=== PATIENT | male | born 1945 | race Caucasian/White ===

== ENCOUNTER 2018-03-25 11:29 | Day surgery (SDC) | payer OTHER ==
[~2018-03-25] VITALS: Ht 180.3 cm; Wt 75.1 kg
[~2018-03-25 11:29] MED LIST: ACET500 PO; ASPI81CH PO; CARV6.25 PO; CHOL10002 PO; EPLE25 PO; HYDR1TAB94; HYDR1TAB94 PO; KRILL OIL500 MG PO; LISI5 PO; MELO7.5 PO; Metamucil Smooth1 EA PO; Multi-Day Vita1 EACH; NATURAL LUTEIN20 MG PO; ZOLP10 PO; [UNRECOGNIZED DRUG - OTHER]
== END 2018-03-25 13:42 | disposition home or self-care (01) ==
LOC: ORSCSDS 11:29
PROVIDERS: Internal Medicine Gastroenterology
PROC: 0DBE8ZX Excision of Large Intestine, Via Natural or Artificial Opening Endoscopic, Diagnostic (ICD-10-PCS; principal; 2018-03-25 13:00)
PROC: 0DBH8ZX Excision of Cecum, Via Natural or Artificial Opening Endoscopic, Diagnostic (ICD-10-PCS; principal; 2018-03-25 13:00)
DX: Z12.11 Encounter for screening for malignant neoplasm of colon (principal); K57.30 Diverticulosis of large intestine without perforation or abscess without bleeding; Z87.891 Personal history of nicotine dependence; Z79.82 Long term (current) use of aspirin; Z79.899 Other long term (current) drug therapy
CPT/HCPCS: 88305; 88313; J7120

== ENCOUNTER → 2020-01-23 | Outpatient (CLI) | payer OTHER ==
[~2020-01-23] MED LIST changes: -ASPI81CH PO; +Aspirin EC81 MG PO; -CHOL10002 PO; +DAILY-VITE1 EACH PO; +METAMUCIL POWD575 GM PO; -Metamucil Smooth1 EA PO; -Multi-Day Vita1 EACH; +OMEP20ER PO; +VITAMIN D31000 UNI1 PO
== END | disposition home or self-care (01) ==
LOC: LAB 11:55
DX: L97.509 Non-pressure chronic ulcer of other part of unspecified foot with unspecified severity (principal)
CPT/HCPCS: 87015; 87116; 87206

== ENCOUNTER 2020-02-16 14:08 | Observation (INO) | payer OTHER ==
[~2020-02-16] VITALS: Ht 180.3 cm; Wt 72.6 kg
[~2020-02-16 14:08] MED LIST changes: -OMEP20ER PO
[2020-02-16 15:15] LABS: BASOPHILS ABSOLUTE AUTO 0.06 K/mm3 (0.00-0.23); BASOPHILS PERCENT AUTO 1 % (0-2); EOSINOPHILS ABSOLUTE AUTO 0.41 K/mm3 (0.00-0.68); EOSINOPHILS PERCENT AUTO 5 % (0-6); Hematocrit 43.6 % (37.0-53.0); Hemoglobin 14.6 g/dL (13.5-17.5); IMMATURE GRAN ABSOLUTE AUTO 0.02 K/mm3 (0.00-0.10); IMMATURE GRAN PERCENT AUTO 0 % (0-1); LYMPHOCYTES ABSOLUTE AUTO 3.33 K/mm3 (0.84-5.20); LYMPHOCYTES PERCENT AUTO 41 % (21-46); MONOCYTES ABSOLUTE AUTO 0.85 K/mm3 (0.16-1.47); MONOCYTES PERCENT AUTO 10 % (4-13); Mean Corpuscular HGB 31.3 pg (26.0-34.0); Mean Corpuscular HGB Conc 33.5 g/dL (31.5-36.5); Mean Corpuscular Volume 94 fL (80-100); Mean Platelet Volume 8.9 fL (9.1-12.4); NEUTROPHILS ABSOLUTE AUTO 3.55 K/mm3 (1.96-9.15); NEUTROPHILS PERCENT AUTO 43 % (41-73); Platelet Count 286 K/mm3 (150-400); RDW Coefficient Variation 12.5 % (11.7-14.2); RDW Standard Deviation 43.4 fL (35.1-46.3); Red Blood Cell Count 4.66 M/mm3 (4.30-5.90); White Blood Cell Count 8.22 K/mm3 (4.00-11.30)
[2020-02-16 15:28] LABS: Alanine Aminotransfer (ALT/SGP 27 U/L (12-78); Albumin, Blood 3.9 g/dL (3.4-5.0); Alk Phos 84 U/L (50-136); Anion Gap 6 mmol/L (6-16); Aspartate Aminotrans (AST/SGOT 9 U/L (12-37); Bilirubin, Total 0.4 mg/dL (0.1-1.0); Blood Urea Nitrogen 13 mg/dL (8-24); Bun/Creatinine Ratio 18.3 (12.0-20.0); CO2, Blood 29 mmol/L (21-32); Calcium, Blood 9.8 mg/dL (8.5-10.1); Chloride, Blood 100 mmol/L (98-108); Creatinine, Blood 0.71 mg/dL (0.60-1.20); Globulin, Blood 4.1 g/dL (2.2-4.0); Glomerular Filtration Rate >60 (60-); Glucose, Blood 125 mg/dL (70-99); Potassium, Blood 3.9 mmol/L (3.5-5.5); Sodium, Blood 135 mmol/L (136-145)
[2020-02-16] MEDS ORDERED: OMEP20ER PO (16:26)
[2020-02-16 17:26] LABS: Influenza A, PCR Negative (NEGATIVE); Influenza B, PCR Negative (NEGATIVE); Resp Syncytial Virus, PCR Negative (NEGATIVE); SARS-Cov-2 (COVID-19) PCR, MMC Negative (NEGATIVE)
--- NOTE | 2020-02-16 19:06 | NUR ---
PT RECENTLY TO ROOM 208 FROM ER VIA W/C. PT TO BED BY SELF. PRESENT. REPORT GIVEN TO GINNA BECERRA.
--- NOTE | 2020-02-16 20:08 | NUR ---
TOOK AN ORAL TEMP. OF 96.9 AND GRABBED HIM HALF A TURKEY SANDWICH WITH CHEDDAR CHEESE. PATIENT EATING AND RESTING IN BED WITH CALL LIGHT IN REACH.
--- NOTE | 2020-02-17 05:23 | NUR ---
SHIFT SUMMARY NEW ADMIT YESTARDAY EVENING. AAOX4. DISCOMFORT TO RIGHT FOOT AT TOLERABLE LEVEL T/O NIGHT, DENIES PAIN MEDICATION/NAUSEA. WOUND DOCUMENTATION COMPLETED IN CHART + WRAPPED WITH NON-ADHERENT GAUZE + KERLEX. PT REPORTS N/T AT BASELINE, UNABLE TO MOVES TOES WELL RLE WHICH PT REPORTS IS NORMAL FOR THE LAST 2-3 MONTHS. IV ABX PER ORDERS. PODIATRY CONSULT CALLED [facility] EVENING AND REPORTED THAT NO PODIATRY COVERAGE WILL BE AVAILABLE TILL 02/19 AND TO CALL ON SUNDAY 02/18 IF PT IS NEEDED TO BE SEEN THEN, DAY SHIFT HOSPITALIST IS TO BE NOTIFIED THIS AM. PT ORIENTED TO ROOM + CALL LIGHT USE. PT CURRENTLY RESTING IN BED WITH CALL LIGHT IN REACH.
--- NOTE | 2020-02-17 07:25 | NUR ---
DR HELMS REPORTS TO HOLD TRAY THIS AM AND TO CONTACT DR PEREZ, HIS PHYSICAL EDUCATION TEACHER TO COME SEE PT. OFFICE CALLED [facility] AT 08:30 THIS AM. WILL DISCUSS WITH PT TO KEEP HIM UP TO DATE AND CHARGE NURSE.
--- NOTE | 2020-02-17 08:41 | NUR ---
DR PEREZ (PODIATRY) OFFICE REPORTED WOULD GIVE MESSAGE TO DR PEREZ TO COME SEE PT, REPORTED THAT HE HAD PT'S UNTIL AROUND 11 AM SO FAR THIS AM. DR HELMS HERE TO SEE PT, UPDATED ON WHAT OFFICE JUST STATED. DR HELMS REPORTS PT MAY EAT THIS AM.
--- NOTE | 2020-02-17 11:05 | NUR ---
DR PEREZ'S OFFICE CALLED REGARDING MD REQUEST FOR DR PEREZ TO COME TO HOSPITAL TO SEE PATIENT TODAY. PER OFFICE DR PEREZ WILL NOT BE COMING INTO HOSPITAL TO SEE PATIENT. THIS RN TOOK MESSAGE AND ALSO REPORTED TO OFFICE STAFF THAT THERE THE HOSPITALIST IS LIKELY DISCHARGING HOME.
--- NOTE | 2020-02-17 11:38 | NUR ---
CARMEN HAMMER) FROM [facility] HERE TO SEE PT, NO NEW ORDERS AT THIS TIME, OK TO D/C FROM THEY'RE PERSPECTIVE.
--- NOTE | 2020-02-17 11:48 | NUR ---
PT REPORTS DOES NOT WANT ABX.
--- NOTE | 2020-02-17 12:24 | NUR ---
DISCHARGE: PT EATING AND DRINKING, VOIDING, PASSING GAS, RECENT BM PER PT. PT/FAMILY REPORTS UNDERSTANDING OF DISCHARGE INSTRUCTIONS. IV OUT WNL. REPORTS HAVING DRESSING SUPPLIES AND ABLE TO CHANGE DRESSING. PT OUT BY W/C. SENT WITH PAPERWORK AND BELONGINGS.
== END 2020-02-17 12:26 | disposition home or self-care (01) ==
LOC: ER 14:08 → SURS 18:37
PROVIDERS: Physician Assistant; ADMIT Internal Medicine
DX: L97.511 Non-pressure chronic ulcer of other part of right foot limited to breakdown of skin (principal); I50.32 Chronic diastolic (congestive) heart failure; G60.9 Hereditary and idiopathic neuropathy, unspecified; M21.371 Foot drop, right foot; C61 Malignant neoplasm of prostate; Z79.82 Long term (current) use of aspirin; Z79.899 Other long term (current) drug therapy; Z96.643 Presence of artificial hip joint, bilateral; Z87.891 Personal history of nicotine dependence; Z95.810 Presence of automatic (implantable) cardiac defibrillator; Z20.828 Contact with and (suspected) exposure to other viral communicable diseases; Z23 Encounter for immunization
CPT/HCPCS: 0241U; 36415; 73630; 73700; 80053; 85025; 85651; 86140; 93922; 96365; 96366; 99284-25; G0378; J3370; J7040; J7050

== ENCOUNTER → 2020-02-16 | Outpatient (CLI) | payer OTHER | END | disposition home or self-care (01) | LOC: LAB 10:00 | DX: L97.519 Non-pressure chronic ulcer of other part of right foot with unspecified severity (principal) | CPT/HCPCS: 87070; 87075; 87077; 87186; 87205 ==

== ENCOUNTER 2020-03-16 00:27 | Day surgery (SDC) | payer OTHER ==
[~2020-03-16 00:27] MED LIST changes: +OMEP20ER PO
== END 2020-03-16 22:50 | disposition home or self-care (01) ==
LOC: WOUND 00:27
DX: E11.621 Type 2 diabetes mellitus with foot ulcer (principal); L97.516 Non-pressure chronic ulcer of other part of right foot with bone involvement without evidence of necrosis; E11.21 Type 2 diabetes mellitus with diabetic nephropathy; M21.371 Foot drop, right foot; I50.9 Heart failure, unspecified; M79.89 Other specified soft tissue disorders; R60.0 Localized edema; I70.213 Atherosclerosis of native arteries of extremities with intermittent claudication, bilateral legs; Z95.810 Presence of automatic (implantable) cardiac defibrillator; Z85.46 Personal history of malignant neoplasm of prostate; Z87.891 Personal history of nicotine dependence
CPT/HCPCS: A9270; G0463

== ENCOUNTER 2020-03-23 00:20 | Day surgery (SDC) | payer OTHER | END 2020-03-23 23:17 | disposition home or self-care (01) | LOC: WOUND 00:20 | DX: L97.516 Non-pressure chronic ulcer of other part of right foot with bone involvement without evidence of necrosis (principal); L02.611 Cutaneous abscess of right foot; G62.9 Polyneuropathy, unspecified; M79.671 Pain in right foot; Z79.82 Long term (current) use of aspirin; Z79.899 Other long term (current) drug therapy; Z20.822 Contact with and (suspected) exposure to COVID-19 | CPT/HCPCS: A9270 ==

== ENCOUNTER 2020-03-30 00:21 | Day surgery (SDC) | payer OTHER | END 2020-03-30 22:53 | disposition home or self-care (01) | LOC: WOUND 00:21 | DX: G62.9 Polyneuropathy, unspecified (principal); L97.516 Non-pressure chronic ulcer of other part of right foot with bone involvement without evidence of necrosis; M79.671 Pain in right foot | CPT/HCPCS: A9270; G0463 ==

== ENCOUNTER 2020-04-06 00:16 | Day surgery (SDC) | payer OTHER | END 2020-04-06 23:45 | LOC: WOUND 00:16 | DX: L97.516 Non-pressure chronic ulcer of other part of right foot with bone involvement without evidence of necrosis (principal); G62.9 Polyneuropathy, unspecified; I50.9 Heart failure, unspecified; Z95.810 Presence of automatic (implantable) cardiac defibrillator | CPT/HCPCS: A9270 ==

== ENCOUNTER 2020-04-13 01:07 | Day surgery (SDC) | payer OTHER | END 2020-04-13 22:55 | disposition home or self-care (01) | LOC: WOUND 01:07 | DX: L97.516 Non-pressure chronic ulcer of other part of right foot with bone involvement without evidence of necrosis (principal); G62.9 Polyneuropathy, unspecified; M79.671 Pain in right foot | CPT/HCPCS: A9270 ==

== ENCOUNTER 2020-04-16 02:19 | Day surgery (SDC) | payer OTHER | END 2020-04-16 22:44 | disposition home or self-care (01) | LOC: WOUND 02:19 | DX: L97.516 Non-pressure chronic ulcer of other part of right foot with bone involvement without evidence of necrosis (principal); G62.9 Polyneuropathy, unspecified; M79.671 Pain in right foot ==

== ENCOUNTER 2020-04-21 00:45 | Day surgery (SDC) | payer OTHER | END 2020-04-21 23:02 | disposition home or self-care (01) | LOC: WOUND 00:45 | DX: L97.516 Non-pressure chronic ulcer of other part of right foot with bone involvement without evidence of necrosis (principal); G62.9 Polyneuropathy, unspecified; M79.671 Pain in right foot | CPT/HCPCS: A9270 ==

== ENCOUNTER 2020-04-30 01:43 | Day surgery (SDC) | payer OTHER | END 2020-04-30 22:44 | disposition home or self-care (01) | LOC: WOUND 01:43 | DX: L97.515 Non-pressure chronic ulcer of other part of right foot with muscle involvement without evidence of necrosis (principal); G62.9 Polyneuropathy, unspecified; I50.9 Heart failure, unspecified; Z95.810 Presence of automatic (implantable) cardiac defibrillator | CPT/HCPCS: A9270 ==

== ENCOUNTER 2020-05-07 00:56 | Day surgery (SDC) | payer OTHER | END 2020-05-07 22:47 | disposition home or self-care (01) | LOC: WOUND 00:56 | DX: L97.515 Non-pressure chronic ulcer of other part of right foot with muscle involvement without evidence of necrosis (principal); G62.9 Polyneuropathy, unspecified; I50.9 Heart failure, unspecified; Z95.810 Presence of automatic (implantable) cardiac defibrillator | CPT/HCPCS: A9270 ==

== ENCOUNTER 2020-05-14 00:50 | Day surgery (SDC) | payer OTHER | END 2020-05-14 23:08 | disposition home or self-care (01) | LOC: WOUND 00:50 | DX: L97.515 Non-pressure chronic ulcer of other part of right foot with muscle involvement without evidence of necrosis (principal); G62.9 Polyneuropathy, unspecified; I50.9 Heart failure, unspecified; Z95.810 Presence of automatic (implantable) cardiac defibrillator | CPT/HCPCS: A9270; Q4196 ==

== ENCOUNTER 2020-05-20 00:17 | Day surgery (SDC) | payer OTHER | END 2020-05-20 23:00 | disposition home or self-care (01) | LOC: WOUND 00:17 | DX: L97.515 Non-pressure chronic ulcer of other part of right foot with muscle involvement without evidence of necrosis (principal); G62.9 Polyneuropathy, unspecified; I50.9 Heart failure, unspecified; Z95.810 Presence of automatic (implantable) cardiac defibrillator | CPT/HCPCS: A9270 ==

== ENCOUNTER 2020-05-28 02:03 | Day surgery (SDC) | payer OTHER | END 2020-05-28 22:47 | disposition home or self-care (01) | LOC: WOUND 02:03 | DX: L97.515 Non-pressure chronic ulcer of other part of right foot with muscle involvement without evidence of necrosis (principal); G62.9 Polyneuropathy, unspecified; I50.9 Heart failure, unspecified; Z95.810 Presence of automatic (implantable) cardiac defibrillator | CPT/HCPCS: A9270 ==

== ENCOUNTER 2020-06-04 00:28 | Day surgery (SDC) | payer OTHER | END 2020-06-04 22:52 | disposition home or self-care (01) | LOC: WOUND 00:28 | DX: L97.515 Non-pressure chronic ulcer of other part of right foot with muscle involvement without evidence of necrosis (principal); G62.9 Polyneuropathy, unspecified; I50.9 Heart failure, unspecified; Z95.810 Presence of automatic (implantable) cardiac defibrillator | CPT/HCPCS: A9270 ==

== ENCOUNTER 2020-06-11 00:27 | Day surgery (SDC) | payer OTHER | END 2020-06-11 23:00 | disposition home or self-care (01) | LOC: WOUND 00:27 | DX: L97.516 Non-pressure chronic ulcer of other part of right foot with bone involvement without evidence of necrosis (principal); G62.9 Polyneuropathy, unspecified | CPT/HCPCS: A9270; G0463 ==

== ENCOUNTER 2020-06-18 00:48 | Day surgery (SDC) | payer OTHER | END 2020-06-18 23:11 | disposition home or self-care (01) | LOC: WOUND 00:48 | DX: L97.516 Non-pressure chronic ulcer of other part of right foot with bone involvement without evidence of necrosis (principal); G62.9 Polyneuropathy, unspecified; M79.671 Pain in right foot | CPT/HCPCS: G0463 ==

== ENCOUNTER → 2022-01-10 | Outpatient (CLI) | payer OTHER | LOC: LAB SHORT 10:21 → LAB 10:21 | DX: B37.2 Candidiasis of skin and nail (principal); A49.9 Bacterial infection, unspecified | CPT/HCPCS: 87070; 87205 ==

== ENCOUNTER 2024-06-05 07:44 | Day surgery (SDC) | payer OTHER ==
[~2024-06-05] VITALS: Ht 180.3 cm; Wt 73.8 kg
[~2024-06-05 07:44] MED LIST changes: +Bupivacaine 0.5% HCl 5 MG/ML 30MLVIAL ONE; +Dexamethasone Sod Phos 10 MG/ML 1ML VIAL ONE; +FentaNYL Citrate 50 MCG/ML 2 ML Injection ONE; +Lidocaine HCl/Pf 1% 5 ML VIAL ONE; +Midazolam HCl 1MG / ML 2ML Vial ONE; +Ondansetron HCl 2 MG / ML 2ML Vial ONE; +propofoL 20 ML IV ONE
[2024-06-05] MEDS ORDERED: CeFAZolin Sodium 2,000 MG VIAL ONE (07:57)
[2024-06-05] MEDS ORDERED: Lidocaine HCl/Pf 1% 5 ML VIAL ONE ×2 (07:57→09:55)
[2024-06-05] MEDS ORDERED: ENTRESTO 49 MG1 EACH PO (08:17)
[2024-06-05] MEDS ORDERED: VYNDAMAX61 MG PO (08:18)
[2024-06-05] MEDS ORDERED: [UNRECOGNIZED DRUG - OTHER] PO (08:19)
[2024-06-05] MEDS ORDERED: IMODIUM A-D2 M1 PO (08:20)
[2024-06-05] MEDS ORDERED: Lactated Ringer's 1,000 ML IV ONE (08:37)
--- NOTE | 2024-06-05 08:39 | NUR ---
06/05/24 0839 ASHLYN KEATING RESTING ON GURNEY, RAILS UP, CALL LIGHT IN ARNEL, STEPHEN IN LOW POSITION.
[2024-06-05] MEDS ORDERED: Ipratropium/Albuterol SulF 2.5-0.5MG/3 ML Amp ONE (09:05)
--- NOTE | 2024-06-05 09:52 | NUR ---
06/05/24 0952 Sadaf Mishra PT HAS A ICD THAT HAS BEEN DEACTIVATED WITH MAGNET PER DR. LIMA, DR. WARD ALSO PRENT. PT HAS BILATERAL HIP REPLACEMENT, AFTER DISCUSSION WITH DR. LIMA ABOUT GROUNDING PAD PLACEMENT IT WAS DECIDED TO PLACE IT ON THE TOP OF THE RIGHT THIGH.
--- NOTE | 2024-06-05 11:48 | NUR ---
06/05/24 [id number] Denise Talavera CALLED [facility], [facility] STATES THEY DO NOT CHECK [place] [facility]. CALLED [facility]URSING [facility]ARE[facility] INVENTORY CLERK AND NOTIFIED DR LIMA. DR LIMA INSTRUCTED TO CALL DEFIB REP. ATTEMPTED TO CALL [facility] AND LEFT VOICEMAIL AND INSTRUCTED TO BRING HOME MONITOR.
[2024-06-05] MEDS ORDERED: FentaNYL Citrate 50 MCG/ML 2 ML Injection ONE (11:49)
[2024-06-05 12:03] VITALS: BP 116/65
== END 2024-06-05 13:21 | disposition home or self-care (01) ==
LOC: ORSCSDS 07:44
PROVIDERS: Surgery
PROC: 0WUF0JZ Supplement Abdominal Wall with Synthetic Substitute, Open Approach (ICD-10-PCS; principal; 2024-06-05 09:00)
DX: K42.0 Umbilical hernia with obstruction, without gangrene (principal); I10 Essential (primary) hypertension; J44.9 Chronic obstructive pulmonary disease, unspecified; Z87.891 Personal history of nicotine dependence; Z79.899 Other long term (current) drug therapy; G47.33 Obstructive sleep apnea (adult) (pediatric)
CPT/HCPCS: 93260; C1781; J0690; J1100; J2003; J2250; J2405; J2704; J3010